=== PATIENT | male | born 1945 | race American Indian/Alaskan Native ===

== ENCOUNTER 2017-04-18 12:09 | Emergency (ER) | payer MEDICARE, OTHER ==
[~2017-04-18] VITALS: Ht 180.3 cm; Wt 86.2 kg
[~2017-04-18 12:09] MED LIST: ACETAMINOPHEN325 M1 PO; ALBUTEROL SULF8.5 GM INH; ALBUTEROL2.5 MG/3 M INH; ALLOPURINOL300 MG PO; AMIODARONE HCL400 MG PO; ASPIRIN EC81 MG PO; BACTRIM DS TAB1 EACH PO; CARDURA1 MG PO; CARVEDILOL12.5 MG PO; COUMADIN5 MG PO; COUMADIN6 MG PO; DIAZEPAM2 MG PO; DILT-XR120 MG PO; DILTIAZEM 24HR240 MG PO; DOXAZOSIN MESYLA2 MG PO; EPOGEN10000 UNIT INJ; EPOGEN4000 UNIT/ INJ; FLOVENT HFA10.6 GM INH; FLOVENT HFA12 G1 INH; HECTOROL2 MCG/1 ML IV; HYDROCODON-ACE1 EA10 PO; LISINOPRIL10 MG PO; MAG-OXIDE400 MG PO; MAGNESIUM GLUCO30 MG PO; NITROSTAT0.4 MG SL; OMEPRAZOLE20 MG PO; ONDANSETRON ODT4 MG SL; PROMETHAZINE-COD5 ML PO; RENAGEL800 MG PO; RENVELA800 MG PO; ROCALTROL0.25 MCG PO; SEREVENT DISKU1 PUFF INH; THERAPEUTIC M1 EAC1 PO; VENOFER100 MG/5 M IV; VITAMIN D5000 UNIT PO; WARFARIN SODIUM5 MG PO
--- NOTE | 2017-04-18 12:32 | NUR ---
I WAS HERE WHEN THIS PT BROUGHT IN. I HAVE KNOWN HIM A LONG TIME, BUT HAVE'NT SEEN HIM FOR A WHILE. I WENT IN TO SEE HIM BUT HE WAS NOT RESPONDING TO ANYONE SO I LEFT. I'LL CHECK BACK LATER AND IF HE IS RESPONDING I'LL VISIT WITH HIM. HE LIVES ALONE AND DOES'NT HAVE MANY VISITORS, YET HE IS VERY SOCIABLE AND WOULD PROBABLY ENJOY A VISIT.
[2017-04-18] MEDS ORDERED: VALIUM2 MG PO (12:53)
[2017-04-18] MEDS ORDERED: NADOLOL20 MG PO (12:57)
[2017-04-18] MEDS ORDERED: FLOMAX0.4 MG PO (12:58)
[2017-04-18] MEDS ORDERED: TYLENOL325 MG PO (13:00)
--- NOTE | 2017-04-18 19:46 | EKG ---
[facility] [address] [facility] [address] [facility] [place] [id number] Signed Atrial-paced rhythm with prolonged AV conduction Left axis deviation Nonspecific intraventricular block Abnormal ECG When compared with ECG of 17-DEC-2016 12:13, Nonspecific intraventricular block has replaced Right bundle branch block Confirmed by GREGG SADLER MD ([id number]) on 04/18/2017 7:46:01 PM Electronically Signed By: GREGG SADLER MD 04/18/17 1946 PATIENT NAME: COURTNEY ABAD JR Electrocardiogram DATE OF : 49 PHYSICIAN: GREGG SADLER MD REPORT #: [id number] REPORT IS CONFIDENTIAL AND NOT TO BE RELEASED WITHOUT AUTHORIZATION
== END 2017-04-18 16:15 | disposition short-term general hospital (02) ==
LOC: ED 12:09
PROC: 0T9B70Z Drainage of Bladder with Drainage Device, Via Natural or Artificial Opening (ICD-10-PCS; principal; 2017-04-18)
DX: R40.4 Transient alteration of awareness (principal); I12.9 Hypertensive chronic kidney disease with stage 1 through stage 4 chronic kidney disease, or unspecified chronic kidney disease; N18.9 Chronic kidney disease, unspecified; F17.200 Nicotine dependence, unspecified, uncomplicated; Z95.0 Presence of cardiac pacemaker; J44.9 Chronic obstructive pulmonary disease, unspecified; K72.90 Hepatic failure, unspecified without coma; Z88.5 Allergy status to narcotic agent; Z88.8 Allergy status to other drugs, medicaments and biological substances; Z88.1 Allergy status to other antibiotic agents; Z79.899 Other long term (current) drug therapy; Z79.82 Long term (current) use of aspirin
CPT/HCPCS: 51702; 70450; 71010; 80053; 81001; 82140; 83605; 84484; 85025; 87088; 93005; 93010; 99285; G0480